=== PATIENT | female | born 1950 | race Caucasian/White ===

== ENCOUNTER 2017-11-02 11:34 | Emergency (ER) | payer MEDICARE, BC ==
--- NOTE | 2017-11-02 12:37 | RAD ---
LEFT ANKLE 3 VIEWS: HISTORY: Left ankle injury. FINDINGS: Internal fixation of the distal fibula and medial malleolus are apparent. Alignment is anatomic. No perihardware lucency. Soft tissue swelling over the lateral malleolus. There is subtle cortical irregularity with a dense liver ossification just lateral to the distal side plate of the lateral fibula, with 0.2 cm lateral displacement. This has the appearance of an ossific fragment related to a very small fracture. IMPRESSION: Minimal displacement of a small ossific avulsion fragment just lateral to the distal margin of the fi bula compression plate. Overlying soft tissue swelling. POS: [facility]
--- NOTE | 2017-11-02 12:48 | RAD ---
RIGHT FOOT 3 VIEWS: HISTORY: Right foot injury. FINDINGS: Lisfranc joint alignment is anatomic. Pes planus on the lateral view. Osteophytosis throughout the foot. Cortical remodeling of the 1st metatarsal head and neck and the 5th metatarsal shaft has the a ppearance of old healed fractures. Joint space narrowing, osteophytosis, and subchondral sclerosis a re most pronounced at the 1st metatarsophalangeal joint where there is flattening of the articular rivers rface of the 1st metatarsal head. IMPRESSION: 1. 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 Suspected old healed fractures of the 1st and 5th metatarsals. 2. No acute osseous abnormalities are demonstrated. POS: [facility]
== END 2017-11-02 13:04 | disposition home or self-care (01) ==
LOC: ERS 11:34
DX: S82.832A Other fracture of upper and lower end of left fibula, initial encounter for closed fracture (principal); E11.9 Type 2 diabetes mellitus without complications; E78.5 Hyperlipidemia, unspecified; F41.9 Anxiety disorder, unspecified; F32.9 Major depressive disorder, single episode, unspecified; I10 Essential (primary) hypertension; X50.1XXA Overexertion from prolonged static or awkward postures, initial encounter

== ENCOUNTER 2020-08-21 11:17 | Emergency (ER) | payer MEDICARE, BC ==
[2020-08-21] MEDS ORDERED: Boostrix 0.5 ML (Tdap) VIAL ONE (12:50)
== END 2020-08-21 14:17 | disposition home or self-care (01) ==
LOC: ERS 11:17
DX: S01.81XA Laceration without foreign body of other part of head, initial encounter (principal); E11.9 Type 2 diabetes mellitus without complications; E78.5 Hyperlipidemia, unspecified; E78.00 Pure hypercholesterolemia, unspecified; I10 Essential (primary) hypertension; W19.XXXA Unspecified fall, initial encounter
CPT/HCPCS: 12011; 90471; 90715

== ENCOUNTER 2022-12-25 13:37 | Outpatient (CLI) | payer MEDICARE, BC | END 2022-12-25 13:38 | disposition home or self-care (01) | LOC: BICMAMMO 13:37 | PROVIDERS: ATTEND Nurse Practitioner Family | DX: Z12.31 Encounter for screening mammogram for malignant neoplasm of breast (principal) | CPT/HCPCS: 77063; 77067 ==

== ENCOUNTER 2024-03-04 12:48 | Outpatient (CLI) | payer MEDICARE | END 2024-03-04 12:49 | disposition home or self-care (01) | LOC: BICMAMMO 12:48 | PROVIDERS: ATTEND Nurse Practitioner Family | DX: Z12.31 Encounter for screening mammogram for malignant neoplasm of breast (principal); N63.20 Unspecified lump in the left breast, unspecified quadrant | CPT/HCPCS: 77063; 77067 ==

== ENCOUNTER 2024-03-05 15:08 | Outpatient (CLI) | payer MEDICARE | END 2024-03-05 15:09 | disposition home or self-care (01) | LOC: BICMAMMO 15:08 | PROVIDERS: ATTEND Nurse Practitioner Family | DX: R92.8 Other abnormal and inconclusive findings on diagnostic imaging of breast (principal) | CPT/HCPCS: 77065; G0279 ==